=== PATIENT | male | born 1995 | race Caucasian/White ===

== ENCOUNTER 2017-11-07 13:23 | Emergency (ER) | payer OTHER ==
--- NOTE | 2017-11-07 15:04 | UC ---
Throat Pain/Nasal Remy HPI - History of Current Complaint Chief Complaint: UCRespiratory Stated Complaint: URI Time Seen by Provider: 11/07/17 14:15 Hx Obtained From: Patient Onset/Duration: Gradual Onset - started with Severity: Moderate Pain Intensity: 5 Pain Scale Used: - started with fever, chills, cough and ST 5 days ago. saw [facility]-no testing. today ST very bad and sees white spots on tonsils. also has a worsening cough Cough: Productive - describes green phlegm Associated Signs & Symptoms: Positive: Fever. Negative: Sinus Discomfort, Vomiting, Rash - Allergies/Home Medications Allergies/Adverse Reactions: Allergies Allergy/AdvReac Type Severity Reaction Status Date / Time No Known Allergies Allergy Verified 11/07/17 13:34 Home Medications: Home Medications D-Methorphan/PE/Acetaminophen [Daytime Cold Multi-Symp Gelcap] 1 each PO [History] Ibuprofen 200 mg PO 11/07/17 [History] Melatonin 5 mg PO 11/07/17 [History] PMH/Surg Hx/FS Hx/Imm Hx Previously Healthy: Yes - Surgical History Surgical History: None - Family History Known Family History: Positive: None - Social History Occupation: Student Lives: With Family Alcohol Use: Weekly Substance Use Type: None Smoking Status (MU): Never Smoked Tobacco Review of Systems Constitutional: Fever, Fatigue Skin: Negative ENT: Sore Throat Respiratory: Cough Cardiovascular: Negative Gastrointestinal: Negative Neurological: Negative Psychological: Negative All Other Systems Reviewed And Are Negative: Yes Physical Exam Triage Information Reviewed: Yes Appearance: Well-Appearing, No Pain Distress, Well-Nourished Vital Signs: Initial Vital Signs Temp 99.8 F 11/07/17 13:25 Pulse 84 11/07/17 13:25 Resp 18 11/07/17 13:25 BP 122/67 11/07/17 13:25 Pulse Ox 99 11/07/17 13:25 Vital Signs Reviewed: Yes Eyes: Positive: Conjunctiva Clear ENT Exam: Normal ENT: Positive: Pharyngeal erythema, Tonsillar swelling, Tonsillar exudate Neck exam: Normal Respiratory: Positive: No respiratory distress, Crackles - R lower lung, productive cough Cardiovascular Exam: Normal Cardiovascular: Positive: RRR, No Murmur Neurological Exam: Normal Psychological Exam: Normal Skin Exam: Normal Throat Pain/Nasal Course/Dx - Differential Dx/Diagnosis Differential Diagnosis/HQI/PQRI: Influenza, Mononucleosis, Tonsillitis, URI, Other - bronchitis Provider Diagnoses: tonsilitis. bronchitis Discharge - Sign-Out/Discharge Documenting (check all that apply): Discharge - Discharge Plan Condition: Stable Disposition: HOME Prescriptions: Azithromycin TAB* [Zithromax TAB (Z-JESS) 250 mg #6 tabs] 2 tab PO .TODAY, THEN 1 DAILY #1 jess Patient Education Materials: Tonsillitis (ED), Acute Bronchitis (ED) Referrals: No Primary Care Phys,NOPCP [Primary Care Provider] - Additional Instructions: drink plenty of fluids use over the counter ibuprofen as directed for pain and fever Start zithromax as prescribed recheck with Sue if no better in 3 days - Billing Disposition and Condition Condition: STABLE Disposition: HOME
== END 2017-11-07 15:20 | disposition home or self-care (01) ==
LOC: UCEAST 13:23
DX: J03.90 Acute tonsillitis, unspecified (principal); J40 Bronchitis, not specified as acute or chronic
CPT/HCPCS: 87651; 99202; G0463

== ENCOUNTER 2018-07-25 15:45 | Emergency (ER) | payer BC ==
[2018-07-25 15:55] VITALS: BP 132/80
[2018-07-25] MEDS ORDERED: Acetaminophen TAB* 325 MG PO ONE (15:58)
--- NOTE | 2018-07-25 16:07 | UC ---
Throat Pain/Nasal Remy HPI - HPI Summary HPI Summary: 22 y/o male presents to the urgent care c/o sore throat, NGUYEN, B/l ear pain and fever for the past 3 days. Pain w/ swallowing is 8/10. He has had fever of 102F since yesterday. he has been taking Motrin PO to alleviate symptoms. Pt denies cough, nasal congestion, wheezing, SOB, chest pain, abdominal pain, N/V/D. Pt is UTD w/ all vaccines for his age. - History of Current Complaint Chief Complaint: UCGeneralIllness Stated Complaint: SORE THROAT Time Seen by Provider: 07/25/18 16:06 Hx Obtained From: Patient Onset/Duration: Gradual Onset, Lasting Days - 3 days, Still Present, Worse Since - today Severity: Severe Pain Intensity: 9 Pain Scale Used: 0-10 Numeric Cough: None Associated Signs & Symptoms: Positive: Dysphagia, Fever - Epiglottits Risk Factors Epiglottis Risk Factors: Negative - Allergies/Home Medications Allergies/Adverse Reactions: Allergies Allergy/AdvReac Type Severity Reaction Status Date / Time No Known Allergies Allergy Verified 07/25/18 15:55 PMH/Surg Hx/FS Hx/Imm Hx Previously Healthy: Yes - Pt denies PMHX - Surgical History Surgical History: None - Family History Known Family History: Positive: None - Pt denies FMHX - Social History Occupation: Student Lives: With Family Alcohol Use: Weekly Substance Use Type: None Smoking Status (MU): Never Smoked Tobacco - Immunization History Vaccination Up to Date: Yes Review of Systems All Other Systems Reviewed And Are Negative: Yes Constitutional: Positive: Fever, Chills Skin: Positive: Negative Eyes: Positive: Negative ENT: Positive: Sore Throat, Sinus Congestion Respiratory: Positive: Negative Cardiovascular: Positive: Negative Gastrointestinal: Positive: Negative Genitourinary: Positive: Negative Motor: Positive: Negative Neurovascular: Positive: Negative Musculoskeletal: Positive: Negative Neurological: Positive: Headache Psychological: Positive: Negative Is Patient Immunocompromised?: No Physical Exam - Summary Physical Exam Summary: VITAL SIGNS: Reviewed. GENERAL: Patient is a well developed and nourished male who is sitting comfortable in the examining table. Patient is not in any acute respiratory distress. HEAD AND FACE: No signs of trauma. No ecchymosis, hematomas or skull depressions. No sinus tenderness. EYES: PERRLA, EOMI x 2, No injected conjunctiva, no nystagmus. No photophobia. EARS: Hearing grossly intact. Ear canals and tympanic membranes are within normal limits. MOUTH: Positive pharynx with erythema, exudates, palatal petechiae. B/L tonsillar enlargement with exudate. Uvula in midline. NECK: Supple, trachea is midline, Positive anterior cervical lymphadenopathy, no JVD, no carotid bruit, no c-spine tenderness, neck with full ROM. No meningeal signs, no Kernig's or brudzinskis signs. CHEST: Symmetric, no tenderness at palpation LUNGS: Clear to auscultation bilaterally. No wheezing or crackles. CVS: Regular rate and rhythm, S1 and S2 present, no murmurs or gallops appreciated. ABDOMEN: Soft, non-tender. No signs of distention. No rebound no guarding, and no masses palpated. Bowel sounds are normal. EXTREMITIES: FROM in all major joints, no edema, no cyanosis or clubbing. NEURO: Alert and oriented x 3. No acute neurological deficits. Speech is normal and follows commands. SKIN: Dry and warm Triage Information Reviewed: Yes Vital Signs: Initial Vital Signs Temp 102 F 07/25/18 15:51 Pulse 105 07/25/18 15:51 Resp 18 07/25/18 15:51 BP 132/80 07/25/18 15:51 Pulse Ox 100 07/25/18 15:51 Throat Pain/Nasal Course/Dx - Course Course Of Treatment: 22 y/o male presents to the urgent care c/o sore throat, NGUYEN , B/l ear pain and fever for the past 3 days. Pain w/ swallowing is 8/10. He has had fever of 102F since yesterday. he has been taking Motrin PO to alleviate symptoms. Pt denies cough, nasal congestion, wheezing, SOB, chest pain , abdominal pain, N/V/D. Pt is UTD w/ all vaccines for his age. Hx obtained. pt febrile w/ pharyngitis on examination. Pt given Tylenol PO for fever by the nurse. Pt tolerated well medication and temp decrease to 100.5F. rapdi strep positive. Strep pharyngitis.Rx Amoxicillin PO and Ibuprofen PO for pain and swelling. First dose of antibiotic given today at the clinic. PT Advised on hand washing to avoid spreading. Also advised to rest, eat well and avoid strenuous exercise. If symptoms do not improve or worsen advised to return to the urgent care or f/u with her PCP for further evaluation and treatment. PT understood and agreed w/ plan of care - Differential Dx/Diagnosis Differential Diagnosis/HQI/PQRI: Laryngitis, Mononucleosis, Pharyngitis, Sinusitis, Tonsillitis, URI Provider Diagnosis: Streptococcal pharyngitis, Fever Discharge - Sign-Out/Discharge Documenting (check all that apply): Patient Departure - d/c home All imaging exams completed and their final reports reviewed: No Studies - Discharge Plan Condition: Stable Disposition: HOME Prescriptions: Amoxicillin PO (*) [Amoxicillin 500 MG CAP*] 500 mg PO Q12H #19 cap Ibuprofen TAB* [Motrin TAB* 800 MG] 800 mg PO Q6H PRN #30 tab PRN Reason: Sore Throat Patient Education Materials: Strep Throat (ED) Forms: *Work Release Referrals: [facility] [Outside] - 3 Days Additional Instructions: 1-Please take the full course of the antibiotic to avoid resistance. first dose given today 2-Please take ibuprofen PO q6-8hrs prn as instructed after meals to alleviate pain and swelling. Increase fluid intake, eat well, rest and avoid strenuous exercise 3-If symptoms do not improve or worsen please return to the urgent care or f/u with your PCPin 3 days for further evaluation and treatment. - Billing Disposition and Condition Condition: STABLE Disposition: Home
[2018-07-25] MEDS ORDERED: Amoxicillin PO (*) 500 MG CAP PO ONE (16:13)
[2018-07-25] MEDS ORDERED: Neomyc/Polym/HC 1% OTIC SUSP* **OTIC RIGHT EAR ONE (17:25)
== END 2018-07-25 16:35 | disposition home or self-care (01) ==
LOC: UCEAST 15:45
DX: J02.0 Streptococcal pharyngitis (principal)
CPT/HCPCS: 87651; 99212; A9270-GY; G0463